=== PATIENT | female | born 1980 | race Caucasian/White ===

== ENCOUNTER → 2020-03-06 11:03 | Outpatient (CLI) | payer OTHER, SELFPAY ==
--- NOTE | ~2020-03-06 | XR_ITS ---
EXAMINATION: XR sacrum coccyx min 2V INDICATION: Pelvic pain for two months TECHNIQUE: Three views of the sacrum and coccyx are obtained. COMPARISON: None available FINDINGS: Bone alignment is normal. There is no fracture. 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 The soft tissues are unremarkable. There is mild lumbar spondylosis at L5-S1. IMPRESSION: 1. No acute osseous abnormality. Reviewed, dictated and finalized at location A.
== END ==
PROVIDERS: PCP Emergency Medicine; Visit Provider Emergency Medicine
DX: M54.5 Low back pain (principal)
CPT/HCPCS: 72220

== ENCOUNTER 2021-03-24 16:40 | Emergency (ER) | payer OTHER, SELFPAY ==
--- NOTE | ~2021-03-24 | CT_ITS ---
EXAMINATION: CT soft tissue neck w con DATE: 03/24/2021 17:57 INDICATION: Antalgic. Left neck swelling. Trismus. TECHNIQUE: Computed tomography (CT) of the neck was performed with 75 mL Omnipaque-350 intravenous co ntrast. The dose-length product was 351.55 mGy-cm. Automated exposure control and iterative reconstru ction technique were employed. COMPARISON: No prior studies for comparison. FINDINGS: No significant periodontal ostial lysis. No evidence for dental or facial abscess. Scattere d nonenlarged submandibular and submental lymph nodes, likely reactive. The orbits, paranasal sinuses and mastoids are unremarkable. No significant abnormality of the mucosal or parapharyngeal space. 11 mm hypovascular left thyroid nodule, likely benign. Mild cervical spondylosis. IMPRESSION: 1. No evidence for significant dental/periodontal disease. No evidence for abscess. Reviewed, dictated and finalized at location A. IMPRESSION: 1. No evidence for significant dental/periodontal disease. No evidence for absc ess.
[2021-03-24 16:46] VITALS: BP 115/73; PULSE 89; RESP 16; TEMP 37.3; O2SAT 99
[2021-03-24 17:22] LABS: Basophils Absolute Auto 0.1 K/mm3 (0.0-0.1); Basophils Percent Auto 0.7 % (0.2-1.2); Eosinophils Absolute Auto 0.1 K/mm3 (0-0.3); Eosinophils Percent Auto 1.7 % (0-4.4); Hematocrit 35.3 % (37.0-47.0); Hemoglobin 12.1 g/dL (12.0-15.0); Immature Granulocyte Absolute 0.02 K/mm3 (0.00-0.031); Immature Granulocyte Percent A 0.3 % (0-0.5); Lymphocytes Absolute Auto 1.89 K/mm3 (0.9-3.2); Lymphocytes Percent Auto 26.9 % (18.3-44.2); Mean Corpuscular HGB Conc 34.3 g/dl (32-36); Mean Corpuscular Hemoglobin 35.4 pg (26-34); Mean Corpuscular Volume 103.2 fl (80-100); Mean Platelet Volume 8.7 fl (7.4-10.4); Monocytes Absolute Auto 0.8 K/mm3 (0.1-0.6); Monocytes Percent Auto 10.8 % (2.6-8.5); Neutrophils Absolute Auto 4.2 K/mm3 (1.3-6.7); Neutrophils Percent Auto 59.6 % (45.5-73.1); Platelet Count Result 334 k/mm3 (150-375); Red Blood Count 3.42 M/mm3 (4.2-5.4); Red Cell Distribution Width 12.7 % (11.5-14.5)
[2021-03-24 17:36] LABS: Anion Gap 9 mmol/L (8-16); Blood Urea Nitrogen 14 mg/dL (7-17); CRP 8.6 mg/dL (<1.0); Calcium 9.7 mg/dL (8.4-10.2); Carbon Dioxide 25 mmol/L (22-30); Chloride 103 mmol/L (98-107); Estimated CRCL calculation 77 ml/min; Estimated Glomerular Filt Rate > 60; Glucose 108 mg/dL (65-110); Potassium 4.3 mmol/L (3.4-5.0); Sodium 137 mmol/L (137-145)
--- NOTE | 2021-03-24 17:42 | ED.DENTAL ---
HPI - Dental/Oral General Chief complaint: Dental/Oral Stated complaint: tooth pain Time Seen by Provider: 03/24/21 16:52 Source: patient Mode of arrival: ambulatory Limitations: no limitations History of Present Illness HPI Narrative: This is a 40 year old female that presents to the ER for toothache present over the last couple of days. Reports swelling and pain to the area. She has not been able to open her mouth. Reports she has not been able to eat. Is still able to tolerate liquids. Denies fever or dyspnea. MD Complaint: tooth pain Location: Tooth # (19) Related Data Allergies Allergy/AdvReac Type Severity Reaction Status Date / Time No Known Allergies Allergy Verified 03/24/21 16:54 Review of Systems Review of Systems: CONSTITUTIONAL: Denies fever ENT: Reports dentalgia RESPIRATORY: Denies dyspnea. All systems reviewed & are unremarkable except as noted in HPI and below PMFSH Past Medical History Medical History (Updated 03/24/21 @ 21:14 by Dipti Wells PA-C) No active medical problems Social History Social History (Updated 03/24/21 @ 17:46 by Dipti Wells PA-C) Substance use: never Exam Narrative: GENERAL: Well-appearing, well-nourished, and in no acute distress. HEAD: Normocephalic, atraumatic. EYES: EOMI. ENT: Mucous membranes moist. Oropharynx without tonsillar hypertrophy exudate or other lesions. Patient unable to fully open mouth. Floor of mouth is soft. Patient tolerating secretions. Tooth #19 tender to palpation NECK: Supple. Left sided anterior cervical tender adenopathy CHEST: Clear to auscultation. No respiratory distress. No wheezes rales or rhonchi HEART: Regular rate and rhythm. No murmur heard. Normal peripheral pulses. EXTREMITIES: Normal range of motion. No edema. SKIN: Warm, dry, no rash. NEURO: No focal deficits. Alert and oriented x3. PSYCH: Normal mood and affect Course Vital Signs Vital signs: Vital Signs Temperature 99.1 F 03/24/21 16:46 Pulse Rate 89 03/24/21 16:46 Respiratory Rate 16 03/24/21 16:46 Blood Pressure 115/73 03/24/21 16:46 Pulse Oximetry 99 03/24/21 16:46 Temperature 99.1 F 03/24/21 16:46 Pulse Rate 82 03/24/21 19:12 Respiratory Rate 18 03/24/21 19:12 Blood Pressure 115/86 03/24/21 19:12 Pulse Oximetry 100 03/24/21 19:12 MDM - Dental/Oral MDM Narrative Medical decision making narrative: Patient presents to the emergency department for dentalgia. Noting swelling to the left lower jaw. She is afebrile and nontoxic-appearing. Patient noting some difficulty swallowing. She is able to tolerate oral intake. Airways patent. Noting some difficulty opening her mouth additionally, this improved with Toradol. CBC is without leukocytosis. Inflammatory markers are elevated. CT scan of the soft tissue neck is without evidence of abscess. Patient given dose of Unasyn in the ED for presumptive dental infection. Will be started on oral antibiotics. She is to follow up with her primary care doctor. She was given warnings to return to the ER Lab Data Attestation: I reviewed the patient's lab results. Result diagrams: 03/24/21 17:16 03/24/21 17:16 Labs: Lab Results 03/24/21 03/24/21 Range/Units 17:16 17:16 WBC 7.0 (4.5-10.0) K/mm3 RBC 3.42 L (4.2-5.4) M/mm3 Hgb 12.1 (12.0-15.0) g/dL Hct 35.3 L (37.0-47.0) % MCV 103.2 H (80-100) fl MCH 35.4 H (26-34) pg MCHC 34.3 (32-36) g/dl RDW 12.7 (11.5-14.5) % Plt Count 334 (150-375) k/mm3 MPV 8.7 (7.4-10.4) fl Immature Gran % (Auto) 0.3 (0-0.5) % Neut % (Auto) 59.6 (45.5-73.1) % Lymph % (Auto) 26.9 (18.3-44.2) % [facility] % (Auto) 10.8 H (2.6-8.5) % Eos % (Auto) 1.7 (0-4.4) % Baso % (Auto) 0.7 (0.2-1.2) % Lymph # (Auto) 1.89 (0.9-3.2) K/mm3 [facility] # (Auto) 0.8 H (0.1-0.6) K/mm3 Eos # (Auto) 0.1 (0-0.3) K/mm3 Baso # (Auto) 0.1 (0.0-0.1) K/mm3 Abs Immat Gran (auto) 0.02
[2021-03-24 17:47] LABS: Erythrocyte Sedimentation Rate 71 mm/hr (0-20)
[2021-03-24 19:12] VITALS: BP 115/86; PULSE 82; RESP 18; O2SAT 100
[2021-03-24] MEDS: KETOROLAC 30 MG/ML VIAL (*BKC) IV PUSH (20:14)
[2021-03-24] MEDS: AMPICILLIN SULB 3 GM/NS 100 ML 3 GM/100 ML VIAL IVPB (20:16)
[2021-03-24 21:57] VITALS: BP 129/80; PULSE 92; RESP 18; O2SAT 97
== END 2021-03-24 21:59 | disposition home or self-care (01) ==
PROVIDERS: Physician Assistant; Emergency Provider Emergency Medicine; PCP Emergency Medicine
DX: K04.7 Periapical abscess without sinus (principal)
CPT/HCPCS: 36415; 70491; 80048; 81025; 85025; 85652; 86140; 96365; 96375; 99284; J0295; J1885; Q9967

== ENCOUNTER 2021-07-03 03:38 | Emergency (ER) | payer OTHER, SELFPAY ==
[2021-07-03 03:46] VITALS: BP 131/88; PULSE 85; RESP 18; TEMP 36.2; O2SAT 100
--- NOTE | 2021-07-03 03:56 | ED.DENTAL ---
HPI - Dental/Oral General Chief complaint: Dental/Oral Stated complaint: left lower broken tooth with pain Time Seen by Provider: 07/03/21 03:43 Source: patient and RN notes reviewed Mode of arrival: ambulatory Limitations: no limitations History of Present Illness HPI Narrative: 41-year-old female with history of poor dentition presents to the emergency department for evaluation of a fractured tooth and worsening dental pain. Patient states earlier in the day she was eating an apple and cracked her tooth. Patient states she did attempt to bare with the pain and to seek outpatient follow-up but the pain was too intense. Patient states that she has Medicare and is unsure of who takes her insurance. Related Data Allergies Allergy/AdvReac Type Severity Reaction Status Date / Time No Known Allergies Allergy Verified 07/03/21 03:50 Review of Systems Review of Systems: Left lower dental pain/dental fracture All systems reviewed & are unremarkable except as noted in HPI and below PMFSH Past Medical History Medical History (Updated 07/03/21 @ 04:04 by Henrik Vizcaino MD) No active medical problems Social History Social History (Updated 03/24/21 @ 17:46 by Dipti Wells PA-C) Substance use: never Exam Narrative: APPEARANCE: Well appearing, no pain, no distress, well-nourished. HEAD: normocephalic, atraumatic. No facial swelling EYES: PERRLA/EOMI, conjunctivae clear. Mouth: Left lower dental caries affecting multiple teeth. No trismus. No abscess. NECK: Supple. No adenopathy, no masses. Const: General: no acute distress Course Course Emergency Course: Patient was provided antibiotics and medications for pain control emergency room. Patient was discharged with similar medications. All questions concerns were addressed. Patient was also provided information on the dentist to follow-up with. Vital Signs Vital signs: Vital Signs Temperature 97.1 F L 07/03/21 03:46 Pulse Rate 85 07/03/21 03:46 Respiratory Rate 18 07/03/21 03:46 Blood Pressure 131/88 07/03/21 03:46 Pulse Oximetry 100 07/03/21 03:46 Temperature 97.1 F L 07/03/21 03:46 Pulse Rate 85 07/03/21 03:46 Respiratory Rate 18 07/03/21 03:46 Blood Pressure 131/88 07/03/21 03:46 Pulse Oximetry 100 02/08/22 03:46 Discharge Plan Discharge Clinical Impression: Toothache, Dental caries Patient Disposition: Home, Self-Care Condition: Stable Instructions: Antibiotic Form, Acute Dental Trauma (ED) Additional Instructions: Antibiotics as directed until completed. Have close follow-up with rosalino alvarez [phone]. Tylenol and ibuprofen for pain control. Tramadol as needed for additional pain control. If you have any worsening symptoms or if you have any questions or concerns then please call or return to the emergency department. Prescriptions: New amoxicillin-pot clavulanate 875-125 mg tablet 1 tablet PO Q12H Qty: 14 RF: 0 tramadol 50 mg tablet 50 mg PO Q6H Qty: 14 RF: 0 No Action amoxicillin-pot clavulanate 875-125 mg tablet 1 tablet PO Q12H 10 Days Qty: 20 RF: 0 Follow-up/Referrals: Saurabh Nicole MD [Primary Care Provider] - Stand Alone Forms: Work/School Release IP
[2021-07-03] MEDS: AMOXICILLIN/CLAVULANATE K 875-125 MG TAB 1 TABLET PO (04:05)
[2021-07-03] MEDS: HYDROcodone/acetaminophen (*CRX) 5-325 MG TABLET 1 TAB PO (04:05)
== END 2021-07-03 04:25 | disposition home or self-care (01) ==
LOC: ANHED 04:17
PROVIDERS: Emergency Provider Emergency Medicine; PCP Emergency Medicine
DX: K02.9 Dental caries, unspecified (principal)
CPT/HCPCS: 99283; A9270

== ENCOUNTER 2022-08-20 15:55 | Emergency (ER) | payer OTHER, SELFPAY ==
--- NOTE | ~2022-08-20 | US_ITS ---
EXAMINATION: US pelvic complete w TV DATE: 08/20/2022 17:34 INDICATION: Menorrhagia TECHNIQUE: Multiple transabdominal and endovaginal sonographic images of the pelvis were obtained. COMPARISON: None. FINDINGS: The uterus measures 8.2 x 3.9 x 4.9 cm. The endometrial complex measures 4 mm. The right ov dano measures 3.2 x 2.9 x 2.3 cm and contains a 2.4 cm simple cyst. The left ovary measures 2.3 x 2.1 x 1.4 cm and contains a 1.6 x 1.1 cm solid appearing lesion with internal calcification. There is nor mal vascular flow in the ovaries. There is no free fluid in the pelvis. IMPRESSION: 1. No sonographic correlate for the patient's symptoms. 2. Solid-appearing lesion of the left adnexa with internal calcification. Follow-up ultrasound in six months is recommended. Reviewed, dictated and finalized at location F. IMPRESSION: 1. No sonographic correlate for the patient's symptoms. 2. Solid-appearing lesion of the left adnexa with internal calcification. Follo w-up ultrasound in six months is recommended.
[2022-08-20 16:03] VITALS: BP 118/69; PULSE 84; RESP 15; TEMP 36.8; O2SAT 99
[2022-08-20 16:13] LABS: Basophils Absolute Auto 0.1 K/mm3 (0.0-0.1); Eosinophils Absolute Auto 0.1 K/mm3 (0-0.3); Hemoglobin 11.9 g/dL (12.0-15.0); Immature Granulocyte Absolute 0.01 K/mm3 (0.00-0.031); Immature Granulocyte Percent A 0.2 % (0-0.5); Lymphocytes Absolute Auto 1.67 K/mm3 (0.9-3.2); Lymphocytes Percent Auto 27.2 % (18.3-44.2); Mean Corpuscular HGB Conc 33.1 g/dl (32-36); Mean Corpuscular Hemoglobin 35.5 pg (26-34); Mean Corpuscular Volume 107.5 fl (80-100); Mean Platelet Volume 8.3 fl (7.4-10.4); Monocytes Absolute Auto 0.6 K/mm3 (0.1-0.6); Monocytes Percent Auto 9.4 % (2.6-8.5); Neutrophils Absolute Auto 3.7 K/mm3 (1.3-6.7); Neutrophils Percent Auto 60.2 % (45.5-73.1); Platelet Count Result 514 k/mm3 (150-375); Red Blood Count 3.35 M/mm3 (4.2-5.4); Red Cell Distribution Width 14.1 % (11.5-14.5); White Blood Count 6.2 K/mm3 (4.5-10.0)
--- NOTE | 2022-08-20 17:01 | ED.FEMALEGU ---
HPI - Female Genitourinary General Chief complaint: Vaginal Bleeding Stated complaint: VAG BLEED Time Seen by Provider: 08/20/22 16:37 History of Present Illness HPI Narrative: 42-year-old female presents to the emergency room today for ongoing problems with heavy vaginal bleeding. She says that her period has been going on for 10 full days and has been heavy the entire time. She went to see her primary care today and they got a low blood pressure of 90 systolic so they wanted her to come to the ER for evaluation. She reports having a lot of lower abdominal cramping. She is soaking through several super tampons daily. No dizziness or lightheadedness. Related Data Allergies Allergy/AdvReac Type Severity Reaction Status Date / Time No Known Allergies Allergy Verified 07/03/21 03:50 Review of Systems Review of Systems: CONSTITUTIONAL: Denies fever, chills, or sweats. EYES: Denies visual changes, redness, or discharge. ENT: Denies rhinorrhea, congestion, sore throat, or otalgia. CARDIOVASCULAR: Denies chest pain, palpitations, or edema. RESPIRATORY: Denies cough or dyspnea. GASTROINTESTINAL: Denies abdominal pain, nausea, vomiting, or diarrhea. GENITOURINARY: As per HPI SKIN: Denies rash or itching. MUSCULOSKELETAL: Denies back pain, joint pain, or myalgia. NEUROLOGIC: Denies headache, numbness, dizziness, or weakness. PSYCHIATRIC: Denies anxiety or depression. PMFSH Past Medical History Medical History No active medical problems Social History Social History Substance use: never Exam Narrative: GENERAL: Well-appearing, well-nourished, and in no acute distress. HEAD: Normocephalic, atraumatic. NECK: Supple. No adenopathy or masses. No carotid bruits or JVD CHEST: Clear to auscultation. No respiratory distress. No wheezes rales or rhonchi HEART: Regular rate and rhythm. No murmur heard. Normal peripheral pulses. ABDOMEN: Soft, nontender, nondistended, normal active bowel sounds. EXTREMITIES: Normal range of motion. No edema. SKIN: Warm, dry, no rash. NEURO: No focal deficits. Alert and oriented x3. PSYCH: Normal mood and affect. Course Vital Signs Vital signs: Vital Signs Temperature 36.8 C 08/20/22 16:03 Pulse Rate 84 08/20/22 16:03 Respiratory Rate 15 08/20/22 16:03 Blood Pressure 118/69 08/20/22 16:03 Pulse Oximetry 99 08/20/22 16:03 Oxygen Delivery Room Air 08/20/22 16:03 Temperature 36.8 C 08/20/22 16:03 Pulse Rate 101 H 08/20/22 17:43 Respiratory Rate 15 08/20/22 16:03 Blood Pressure 159/92 H 08/20/22 17:43 Pulse Oximetry 99 08/20/22 16:03 Oxygen Delivery Room Air 08/20/22 16:03 MDM - Female Genitourinary Lab Data Attestation: I reviewed the patient's lab results. 08/20/22 16:03 Labs: Lab Results 08/20/22 08/20/22 08/20/22 Range/Units 16:03 16:03 17:06 WBC 6.2 (4.5-10.0) K/mm3 RBC 3.35 L (4.2-5.4) M/mm3 Hgb 11.9 L (12.0-15.0) g/dL Hct 36.0 L (37.0-47.0) % MCV 107.5 H (80-100) fl MCH 35.5 H (26-34) pg MCHC 33.1 (32-36) g/dl RDW 14.1 (11.5-14.5) % Plt Count 514 H D (150-375) k/mm3 MPV 8.3 (7.4-10.4) fl Immature Gran % (Auto) 0.2 (0-0.5) % Neut % (Auto) 60.2 (45.5-73.1) % Lymph % (Auto) 27.2 (18.3-44.2) % [place] % (Auto) 9.4 H (2.6-8.5) % Eos % (Auto) 2.0 (0-4.4) % Baso % (Auto) 1.0 (0.2-1.2) % Lymph # (Auto) 1.67 (0.9-3.2) K/mm3 [place] # (Auto) 0.6 (0.1-0.6) K/mm3 Eos # (Auto) 0.1 (0-0.3) K/mm3 Baso # (Auto) 0.1 (0.0-0.1) K/mm3 Abs Immat Gran (auto) 0.01 (0.00-0.031) K/mm3 Absolute Neuts (auto) 3.7 (1.3-6.7) K/mm3 Absolute Nucleated RBC 0.0 (0.0-0.012) K/mm3 Nucleated RBC % 0.0 (0.0-0.2) % Sodium 135 L (137-145) mmol/L Potassium 4.2 (3.4-5.0) mmol/L Chloride 103 (98-107) mmol/L
[2022-08-20 17:17] LABS: Alanine Aminotransferase 15 U/L (6-35); Albumin Level 4.1 g/dL (3.5-5.1); Alkaline Phosphatase 53 U/L (38-126); Anion Gap 3 mmol/L (8-16); Aspartate Amino Transferase 26 U/L (14-36); Bilirubin,Total 0.5 mg/dL (0.2-1.3); Blood Urea Nitrogen 18 mg/dL (7-17); Calcium 8.9 mg/dL (8.4-10.2); Carbon Dioxide 29 mmol/L (22-30); Chloride 103 mmol/L (98-107); Estimated CRCL calculation 80 ml/min; Estimated Glomerular Filt Rate > 60; Glucose 99 mg/dL (65-110); Potassium 4.2 mmol/L (3.4-5.0); Sodium 135 mmol/L (137-145)
[2022-08-20 17:18] LABS: Appearance Urine Cloudy (Clear); Bacteria Urine 4+ /hpf; Bilirubin Urine Negative (Negative); Blood Urine 1+ (Negative); Color Urine Yellow (Yellow); Glucose Urine UA Negative (Negative); Ketones Urine Trace mg/dL (Negative); Leukocyte Esterase Ur Negative LEU/UL (Negative); Nitrate Urine Positive (Negative); Non Pathogenic Casts 0-2; Protein Urine Negative (Negative); Squamous Epithelial Cell Urine None seen /hpf (Few); Urobilinogen Urine 0.2 mg/dL (<2.0)
[2022-08-20 17:31] LABS: Add Urine Microscopic? YES
[2022-08-20 17:32] LABS: Pregnancy On Board Control Positive; Urine Pregnancy Test Negative
[2022-08-20 17:37] VITALS: BP 129/83; PULSE 94
[2022-08-20 17:40] VITALS: BP 121/87; PULSE 95
[2022-08-20 17:43] VITALS: BP 159/92; PULSE 101
[2022-08-20] MEDS: KETOROLAC 30 MG/ML VIAL (*BKC) IV PUSH (17:59)
[2022-08-20] MEDS: SODIUM CHLORIDE 0.9% IV 1,000 ML 999 ML IV CONT (18:00)
[2022-08-20 19:10] VITALS: PULSE 78; RESP 18; O2SAT 100
== END 2022-08-20 19:20 | disposition home or self-care (01) ==
PROVIDERS: Emergency Medicine; Emergency Provider Nurse Practitioner Family; PCP Emergency Medicine
DX: N93.8 Other specified abnormal uterine and vaginal bleeding (principal); D64.9 Anemia, unspecified; N94.89 Other specified conditions associated with female genital organs and menstrual cycle
CPT/HCPCS: 36415; 76830; 76856; 80053; 81001; 81025; 85025; 87077; 87086; 87186; 96365; 96375; 99284; J0696; J1885; J7030

== ENCOUNTER 2024-04-14 15:36 | Emergency (ER) | payer OTHER, SELFPAY ==
--- NOTE | ~2024-04-14 | XR_ITS ---
CHEST RADIOGRAPH, PA AND LATERAL CLINICAL HISTORY: shortness of breath, CP, DIZZINESS FOR COUPLE WKS . COMPARISON: None available TECHNIQUE: PA and lateral views of the chest. FINDINGS The cardiomediastinal silhouette is unremarkable. The lungs are clear. Visualized osseous structures and soft tissues are unremarkable. IMPRESSION: No focal infiltrate or effusion. Reviewed, dictated and finalized at location A. DENTIAL SUPPORT WORKER
[2024-04-14 15:41] VITALS: BP 129/91; PULSE 95; RESP 20; TEMP 36.6; O2SAT 100
--- NOTE | 2024-04-14 17:17 | ECG_ITS ---
Test Date: 2024-04-14 17:20:59 Measurements Intervals [place] Rate: 102 P: 52 MI: 131 QRS: 49 QRSD: 81 T: 43 QT: 365 QTc: 477 Interpretive Statements SINUS TACHYCARDIA BORDERLINE T WAVE ABNORMALITY- ANT/INF LEADS BASELINE ARTIFACT- V4 BORDERLINE ECG No previous ECG available for comparison Electronically Signed On 04-14-2024 18:38:27 [employer] by Abhijit Lance D.O.
[2024-04-14 18:04] LABS: Add Urine Microscopic? NO; Appearance Urine Clear (Clear); Bilirubin Urine Negative (Negative); Blood Urine Negative (Negative); Color Urine Yellow (Yellow); Glucose Urine UA Negative (Negative); Ketones Urine Negative (Negative); Leukocyte Esterase Ur Negative LEU/UL (Negative); Nitrate Urine Negative (Negative); Protein Urine Negative (Negative); Specific Grav Ur 1.028 (1.001-1.035); Urobilinogen Urine 0.2 mg/dL (<2.0); pH Urine 5.5 (5.0-9.0)
[2024-04-14 18:04] LABS: Basophils Absolute Auto 0.1 K/mm3 (0.0-0.1); Basophils Percent Auto 1.1 % (0.2-1.2); Eosinophils Percent Auto 0.2 % (0-4.4); Hematocrit 25.5 % (37.0-47.0); Immature Granulocyte Absolute 0.01 K/mm3 (0.00-0.031); Immature Granulocyte Percent A 0.2 % (0-0.5); Lymphocytes Absolute Auto 1.34 K/mm3 (0.9-3.2); Lymphocytes Percent Auto 29.6 % (18.3-44.2); Mean Corpuscular HGB Conc 31.4 g/dl (32-36); Mean Corpuscular Hemoglobin 32.8 pg (26-34); Mean Corpuscular Volume 104.5 fl (80-100); Mean Platelet Volume 8.4 fl (7.4-10.4); Monocytes Absolute Auto 0.4 K/mm3 (0.1-0.6); Monocytes Percent Auto 8.2 % (2.6-8.5); Neutrophils Absolute Auto 2.8 K/mm3 (1.3-6.7); Neutrophils Percent Auto 60.7 % (45.5-73.1); Platelet Count Result 672 k/mm3 (150-375); Red Blood Count 2.44 M/mm3 (4.2-5.4); Red Cell Distribution Width 14.6 % (11.5-14.5); White Blood Count 4.5 K/mm3 (4.5-10.0)
[2024-04-14 18:14] LABS: Alanine Aminotransferase 15 U/L (6-35); Albumin Level 4.3 g/dL (3.5-5.1); Alkaline Phosphatase 49 U/L (38-126); Anion Gap 9 mmol/L (4-12); Aspartate Amino Transferase 24 U/L (14-36); Bilirubin,Total 0.4 mg/dL (0.2-1.3); Blood Urea Nitrogen 16 mg/dL (7-17); Calcium 9.4 mg/dL (8.4-10.2); Carbon Dioxide 19 mmol/L (22-30); Chloride 107 mmol/L (98-107); Estimated CRCL calculation 69 ml/min; Estimated Glomerular Filt Rate > 60; Glucose 145 mg/dL (65-110); Potassium 3.8 mmol/L (3.4-5.0); Sodium 135 mmol/L (137-145)
--- NOTE | 2024-04-14 18:27 | ED_ITS ---
HPI - SOB/Dyspnea General Chief Complaint: Shortness of Breath/Dyspnea <Megan Camp APRN - Last Filed: 04/14/24 18:31> Stated Complaint: headache x 2 weeks <Megan Camp APRN - Last Filed: 04/14/24 18:31> Time Seen by Provider: 04/14/24 18:20 <Megan Camp APRN - Last Filed: 04/14/24 18:31> Focused HPI: Patient is a 43-year-old female who presents to the ER with shortness of breath, especially with exertion, and a headache that radiates from her neck up towards the base of her head. She reports she has a history of high blood pressure and tachycardia. Patient endorses bilateral lower extremity swelling recently also. She reports she was a previous smoker but quit about 10 years ago. Patient denies chest pain, fevers, or wheezing. GENERAL: Pallor, well-appearing, well-nourished, and in no acute distress. HEAD: Normocephalic, atraumatic. CHEST: Clear to auscultation. ?No respiratory distress. HEART: Tachycardia, regular rhythm.? NEURO: ?Alert and oriented x3. Patient screened in triage and initial orders placed.? ?Additional care and disposition to be based upon?diagnostic testing and treatment. <Megan Camp APRN - Last Filed: 04/14/24 18:31> Related Data Allergies/Adverse Reactions: Allergies Allergy/AdvReac Type Severity Reaction Status Date / Time No Known Allergies Allergy Verified 07/03/21 03:50 <Megan Camp APRN - Last Filed: 04/14/24 18:31> Review of Systems Review of Systems: All systems are reviewed and are negative unless stated otherwise in the HPI. <Brendon Vo MD - Last Filed: 04/14/24 20:56> PMFSH Past Medical History Medical History: Medical History No active medical problems <Megan Camp APRN - Last Filed: 04/14/24 18:31> Social History Social History: Social History Substance use: never <Megan Camp APRN - Last Filed: 04/14/24 18:31> Exam Narrative: General: Alert, awake, afebrile, in no acute distress. HEENT: PERRL, no rhinorrhea, no post nasal drip, oropharynx clear. Neck: Trachea midline, no JVD, no lymphadenopathy. Cardiovascular: Regular rate and rhythm, no murmurs, rubs or gallops, no peripheral edema. Respiratory: Clear to auscultation bilaterally, no tachypnea, no wheezing, no rhonchi, no rubs, no respiratory distress. Abdomen: Soft, nontender, nondistended, no rebound, no guarding, no peritoneal signs. Musculoskeletal: No joint swelling or deformity, normal muscle tone. Skin: No rashes or petechia, no signs of infection. Psychiatric: Alert and oriented, normal behavior and judgment for situation. Neurological: Alert and oriented to person, place, and time. Follows all commands. No focal deficits, speech is clear and fluent. <Brendon Vo MD - Last Filed: 04/14/24 20:56> Course Vital Signs Vital signs: Vital Signs Temperature 97.9 F 04/14/24 15:41 Pulse Rate 95 04/14/24 15:41 Respiratory Rate 20 04/14/24 15:41 Blood Pressure 129/91 H 04/14/24 15:41 Pulse Oximetry 100 04/14/24 15:41 Oxygen Delivery Room Air 04/14/24 15:41 Temperature 97.9 F 04/14/24 15:41 Pulse Rate 95 04/14/24 15:41 Respiratory Rate 20 04/14/24 15:41 Blood Pressure 129/91 H 04/14/24 15:41 Pulse Oximetry 100 04/14/24 15:41 Oxygen Delivery Room Air 04/14/24 15:41 <Megan Camp FORMING MACHINE OPERATOR - Last Filed: 04/14/24 18:31> Vital Signs Temperature 97.9 F 04/14/24 15:41 Pulse Rate 95 04/14/24 15:41 Respiratory Rate 20 04/14/24 15:41 Blood Pressure 129/91 H 04/14/24 15:41 Pulse Oximetry 100 04/14/24 15:41 Oxygen Delivery Room Air 04/14/24 15:41 Temperature 97.9 F 04/14/24 15:41 Pulse Rate 95 04/14/24 15:41 Respiratory Rate 20 04/14/24 15:41 Blood Pressure 129/91 H 04/14/24 15:41 Pulse Oximetry 100 04/14/24 15:41 Oxygen Delivery Room Air 04/14/24 15:41 <Brendon Vo MD - Last Filed: 04/14/24 20:56> MDM - SOB/Dyspnea MDM Narrative Medical decision making narrative: The patient was evaluated by myself in the emergency department. History is obtained from patient who is an independent historian and physical exam was performed. External medical records were reviewed at this time. IV was established and pertinent tests were ordered. EKG was obtained which revealed sinus tachycardia rate of 102 beats per minute. No ST changes, T wave inversions or evidence of acute ischemia. EKG was independently interpreted by me and is currently pending official cardiology read. Laboratory results obtained include a troponin, D-dimer which were all noted to be negative. Urinalysis unremarkable. Patient was informed that her hemoglobin was noted to be 8 and was informed that her anemia could be contributing to her symptoms. Patient denies any history of anemia. Denies any current blood thinner use and denies any dark stools. Patient was informed that she will need to follow-up with her primary care physician for further evaluation including iron studies and patient is agreeable with this plan. She was also informed that she will be provided with supervisor offset plate preparation follow-up with. Imaging studies obtained included CXR which was independently interpreted by me revealing no acute cardiopulmonary process, which is pending final radiology interpretation. Differential diagnosis considerations include acute viral syndrome, infectious process such as pneumonia, acute coronary syndrome, congestive heart failure. Comorbidities impacting this visit include history of hypertension and tachy cardia. I have evaluated and discussed social determinants of health with the patient that could potentially impact subsequent diagnosis and treatment plans. On repeat assessment of the patient, reevaluation revealed that the patient is doing well and is in no acute distress. Patient symptoms have remained stable arrived to our emergency department. Repeat vital signs were all reviewed and no steven to be stable. Differential diagnosis and treatment plan were discussed with the patient at bedside. Patient agrees with discussion and after shared medical decision making agrees with discharge. All questions were answered to the patient's satisfaction. Patient will follow up with her PCP in 3-5 days. Patient was provided with strict return precautions and instructed to return to the emergency department if any new or worsening symptoms develop. The patient was discharged in stable condition. <Brendon Vo MD - Last Filed: 04/14/24 20:56> Lab Data Result diagrams: 04/14/24 17:28 04/14/24 17:28 <Megan Camp APRN - Last Filed: 04/14/24 18:31> Labs: Lab Results 04/14/24 04/14/24 04/14/24 Range/Units 17:27 17:28 17:48 WBC 4.5 (4.5-10.0) K/mm3 RBC 2.44 L (4.2-5.4) M/mm3 Hgb 8.0 L D (12.0-15.0) g/dL Hct 25.5 L (37.0-47.0) % MCV 104.5 H (80-100) fl MCH 32.8 (26-34) pg MCHC 31.4 L (32-36) g/dl RDW 14.6 H (11.5-14.5) % Plt Count 672 H (150-375) k/mm3 MPV 8.4 (7.4-10.4) fl Immature Gran % (Auto) 0.2 (0-0.5) % Neut % (Auto) 60.7 (45.5-73.1) % Lymph % (Auto) 29.6 (18.3-44.2) % [place] % (Auto) 8.2 (2.6-8.5) % Eos % (Auto) 0.2 (0-4.4) % Baso % (Auto) 1.1 (0.2-1.2) % Lymph # (Auto) 1.34 (0.9-3.2) K/mm3 [place] # (Auto) 0.4 (0.1-0.6) K/mm3 Eos # (Auto) 0.0 (0-0.3) K/mm3 Baso # (Auto) 0.1 (0.0-0.1) K/mm3 Abs Immat Gran (auto) 0.01 (0.00-0.031) K/mm3 Absolute Neuts (auto) 2.8 (1.3-6.7) K/mm3 Absolute Nucleated RBC 0.000 (0.0-0.012) K/mm3 Nucleated RBC % 0.0 (0.0-0.2) % PT 13.3 (11.1-14.7) Seconds INR 1.0 APTT 25.8 (22.3-36.8) Seconds D-Dimer < 0.27 (<0.48) ug/mL Sodium 135 L (137-145) mmol/L Potassium 3.8 (3.4-5.0) mmol/L Chloride 107 (98-107) mmol/L Carbon Dioxide 19 L (22-30) mmol/L Anion Gap 9 (4-12) mmol/L BUN 16 (7-17) mg/dL Creatinine 0.70 (0.7-1.0) mg/dL Estim Creat Clear Calc 69 ml/min Estimated GFR > 60 (59 - ) Glucose 145 H (65-110) mg/dL Calcium 9.4 (8.4-10.2) mg/dL Magnesium 1.9 (1.6-2.3) mg/dL Total Bilirubin 0.4 (0.2-1.3) mg/dL AST 24 (14-36) U/L ALT 15 (6-35) U/L Alkaline Phosphatase 49 (38-126) U/L Troponin I < 0.012 (0.000-0.034) ng/mL NT-Pro-B Natriuret Pep 130 H (19.9-100) pg/mL Total Protein 8.0 (6.3-8.2) g/dL Albumin 4.3 (3.5-5.1) g/dL Urine Color Yellow (Yellow) Urine Appearance Clear (Clear) Urine pH 5.5 (5.0-9.0) Ur Specific [place] 1.028 (1.001-1.035) Urine Protein Negative (Negative) mg/dL Urine Glucose (UA) Negative (Negative) mg/dL Urine Ketones Negative (Negative) mg/dL Ur Blood (Man) Negative (Negative) Urine Nitrate Negative (Negative) Urine Bilirubin Negative (Negative) Urine Urobilinogen 0.2 (<2.0) mg/dL Leukocyte Esterase Rfl Negative (Negative) SHRAVAN/UL <Megan LChris [place], FORMING MACHINE OPERATOR - Last Filed: 04/14/24 18:31> Lab Results 04/14/24 04/14/24 04/14/24 Range/Units 17:27 17:28 17:48 WBC 4.5 (4.5-10.0) K/mm3 RBC 2.44 L (4.2-5.4) M/mm3 Hgb 8.0 L D (12.0-15.0) g/dL Hct 25.5 L (37.0-47.0) % MCV 104.5 H (80-100) fl MCH 32.8 (26-34) pg MCHC 31.4 L (32-36) g/dl RDW 14.6 H (11.5-14.5) % Plt Count 672 H (150-375) k/mm3 MPV 8.4 (7.4-10.4) fl Immature Gran % (Auto) 0.2 (0-0.5) % Neut % (Auto) 60.7 (45.5-73.1) % Lymph % (Auto) 29.6 (18.3-44.2) % [place] % (Auto) 8.2 (2.6-8.5) % Eos % (Auto) 0.2 (0-4.4) % Baso % (Auto) 1.1 (0.2-1.2) % Lymph # (Auto) 1.34 (0.9-3.2) K/mm3 [place] # (Auto) 0.4 (0.1-0.6) K/mm3 Eos # (Auto) 0.0 (0-0.3) K/mm3 Baso # (Auto) 0.1 (0.0-0.1) K/mm3 Abs Immat Gran (auto) 0.01 (0.00-0.031) K/mm3 Absolute Neuts (auto) 2.8 (1.3-6.7) K/mm3 Absolute Nucleated RBC 0.000 (0.0-0.012) K/mm3 Nucleated RBC % 0.0 (0.0-0.2) % PT 13.3 (11.1-14.7) Seconds INR 1.0 APTT 25.8 (22.3-36.8) Seconds D-Dimer < 0.27 (<0.48) ug/mL Sodium 135 L (137-145) mmol/L Potassium 3.8 (3.4-5.0) mmol/L Chloride 107 (98-107) mmol/L Carbon Dioxide 19 L (22-30) mmol/L Anion Gap 9 (4-12) mmol/L BUN 16 (7-17) mg/dL Creatinine 0.70 (0.7-1.0) mg/dL Estim Creat Clear Calc 69 ml/min Estimated GFR > 60 (59 - ) Glucose 145 H (65-110) mg/dL Calcium 9.4 (8.4-10.2) mg/dL Magnesium 1.9 (1.6-2.3) mg/dL Total Bilirubin 0.4 (0.2-1.3) mg/dL AST 24 (14-36) U/L ALT 15 (6-35) U/L Alkaline Phosphatase 49 (38-126) U/L Troponin I < 0.012 (0.000-0.034) ng/mL NT-Pro-B Natriuret Pep 130 H (19.9-100) pg/mL Total Protein 8.0 (6.3-8.2) g/dL Albumin 4.3 (3.5-5.1) g/dL Urine Color Yellow (Yellow) Urine Appearance Clear (Clear) Urine pH 5.5 (5.0-9.0) Ur Specific [place] 1.028 (1.001-1.035) Urine Protein Negative (Negative) mg/dL Urine Glucose (UA) Negative (Negative) mg/dL Urine Ketones Negative (Negative) mg/dL Ur Blood (Man) Negative (Negative) Urine Nitrate Negative (Negative) Urine Bilirubin Negative (Negative) Urine Urobilinogen 0.2 (<2.0) mg/dL Leukocyte Esterase Rfl Negative (Negative) SHRAVAN/UL <Brendon Vo MD - Last Filed: 04/14/24 20:56> Discharge Plan Discharge Clinical Impression: Anemia, Exertional dyspnea <Megan Camp APRN - Last Filed: 04/14/24 18:31> Patient Disposition: Home, Self-Care <Megan Camp APRN - Last Filed: 04/14/24 18:31> Condition: Stable <Megan Camp APRN - Last Filed: 04/14/24 18:31> Instructions: Antibiotic Form, Anemia (ED) <Megan Camp APRN - Last Filed: 04/14/24 18:31> Additional Instructions: Please follow-up with your family doctor within the next 3-5 days. Return to the ED if any new or worsening symptoms develop. You also provided with a supervisor offset plate preparation to follow up with and instructed to call to set up a follow-up appointment. <Megan Camp APRN - Last Filed: 04/14/24 18:31> Prescriptions: No Action ferrous sulfate 325 mg (65 mg iron) tablet 325 mg PO DAILY Qty: 30 0RF naproxen 500 mg tablet 500 mg PO BID PRN (Reason: pain) Qty: 30 0RF amoxicillin-pot clavulanate 875-125 mg tablet 1 tablet PO Q12H 10 Days Qty: 20 0RF amoxicillin-pot clavulanate 875-125 mg tablet 1 tablet PO Q12H Qty: 14 0RF tramadol 50 mg tablet 50 mg PO Q6H Qty: 14 0RF <Megan Camp APRN - Last Filed: 04/14/24 18:31> Follow-up/Referrals: Faustino Doyle MD [Physician] - 1 Week Saurabh Nicole MD [Primary Care Provider] - 3 Days <Megan Camp APRN - Last Filed: 04/14/24 18:31> Time of Disposition: 20:55 <Megan Camp APRN - Last Filed: 04/14/24 18:31> 20:55 <Brendon Vo MD - Last Filed: 04/14/24 20:56>
[2024-04-14 20:14] LABS: Magnesium 1.9 mg/dL (1.6-2.3)
[2024-04-14 20:22] LABS: Prothrombin Time 13.3 Seconds (11.1-14.7)
[2024-04-14 20:24] LABS: Partial Thromboplastin Time 25.8 Seconds (22.3-36.8)
[2024-04-14 20:26] LABS: NT Pro B Type Natriuretic Pept 130 pg/mL (19.9-100); Troponin I < 0.012 ng/mL (0.000-0.034)
[2024-04-14 20:28] LABS: D Dimer < 0.27 ug/mL (<0.48)
[2024-04-14 21:42] VITALS: BP 132/87; PULSE 95; RESP 20; O2SAT 100
[2024-04-14 21:43] VITALS: O2SAT 97
== END 2024-04-14 21:44 | disposition home or self-care (01) ==
PROVIDERS: Registered Nurse; Emergency Provider Emergency Medicine; PCP Emergency Medicine
DX: D64.9 Anemia, unspecified (principal); R06.00 Dyspnea, unspecified; R00.0 Tachycardia, unspecified
CPT/HCPCS: 36415; 71046; 80053; 81003; 83735; 83880; 84484; 85025; 85380; 85610; 85730; 93005; 99284

== ENCOUNTER 2024-07-12 10:44 | Emergency (ER) | payer OTHER, SELFPAY ==
[2024-07-12 10:58] VITALS: BP 120/83; PULSE 91; RESP 14; TEMP 36.6; O2SAT 100
--- NOTE | 2024-07-12 11:52 | ED.DENTAL ---
HPI - Dental/Oral General Chief complaint: Dental/Oral Stated complaint: broke tooth yesterday, woke up with L jaw pain Time Seen by Provider: 07/12/24 11:03 History of Present Illness HPI Narrative: Patient is a 44-year-old female who presents ER with left-sided jaw pain. Was eating yesterday and fractured tooth 17. Began developing pain this morning. No fevers or chills. No facial swelling. Related Data Allergies Allergy/AdvReac Type Severity Reaction Status Date / Time No Known Allergies Allergy Verified 07/12/24 11:39 Review of Systems Constitutional: Constitutional: Reports no additional constitutional complaints ENT: Reports system reviewed and no additional complaints, except as documented PMFSH Past Medical History Medical History No active medical problems Social History Social History Substance use: never Exam Narrative: GENERAL: Well-appearing, well-nourished, and in no acute distress. HEAD: Normocephalic, atraumatic. ENT: Mucous membranes moist. Fractured tooth 17. No facial swelling. No drainage from the tooth. CHEST: Clear to auscultation. No respiratory distress. HEART: Regular rate and rhythm. Normal peripheral pulses. EXTREMITIES: Normal range of motion. No edema. NEURO: Alert and oriented x3. PSYCH: Normal mood and affect. Course Course Emergency Course: Discussed treatment for dental fracture. Will give antibiotics as well. Follow up with a dentist. Vital Signs Vital signs: Vital Signs Temperature 97.8 F 07/12/24 10:58 Pulse Rate 91 07/12/24 10:58 Respiratory Rate 14 07/12/24 10:58 Blood Pressure 120/83 07/12/24 10:58 Pulse Oximetry 100 07/12/24 10:58 Oxygen Delivery Room Air 07/12/24 10:58 Temperature 97.8 F 07/12/24 10:58 Pulse Rate 91 07/12/24 10:58 Respiratory Rate 14 07/12/24 10:58 Blood Pressure 120/83 07/12/24 10:58 Pulse Oximetry 100 07/12/24 10:58 Oxygen Delivery Room Air 07/12/24 10:58 Discharge Plan Discharge Clinical Impression: Pain, dental Patient Disposition: Home, Self-Care Condition: Stable Instructions: Toothache (ED) Additional Instructions: Return the ER if he can not breathe, he can not swallow, or you have additional concerns. Patient Language: Lithuanian Prescriptions: New hydrocodone-acetaminophen 5-325 mg tablet 1 tablet PO Q6H PRN (Reason: pain) Qty: 10 0RF amoxicillin-pot clavulanate 875-125 mg tablet 1 tablet PO Q12H Qty: 20 0RF No Action ferrous sulfate 325 mg (65 mg iron) tablet 325 mg PO DAILY Qty: 30 0RF naproxen 500 mg tablet 500 mg PO BID PRN (Reason: pain) Qty: 30 0RF amoxicillin-pot clavulanate 875-125 mg tablet 1 tablet PO Q12H 10 Days Qty: 20 0RF amoxicillin-pot clavulanate 875-125 mg tablet 1 tablet PO Q12H Qty: 14 0RF tramadol 50 mg tablet 50 mg PO Q6H Qty: 14 0RF Follow-up/Referrals: UNKNOWN,DOCTOR [Primary Care Provider] -
--- OUTSIDE RECORDS SUMMARY | 2024-07-12 13:47 | XMS_ITS | Clinical Summary ---
Author Organization [facility] Address [address] [place] [address] Care Team Providers Care Kitchen Help Handyman Name Role Phone Saurabh Nicole MD Primary Care Provider [phone] Allergies No known active allergies Medications chlorhexidine (PERIDEX) 0.12 % solution Apply 15 mL to the mouth or throat 2 (two) times a day 120 mL 09/13/2023 Active ibuprofen (ADVIL,MOTRIN) 800 mg tablet Take 1 tablet (800 mg total) by mouth 3 (three) times a day 21 tablet 09/13/2023 Active Social History Tobacco Use Types Packs/Day Years Used Date Smoking Tobacco: Never Assessed Personal Safety Answer Date Recorded Getting School Help Needed Not on file 08/09 Comments No Sex and Gender Information Value Date Recorded Sex Assigned at Not on file Legal Sex Female 2:44 PM 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 Gender Identity Not on file Sexual Orientation Not on file Last Filed Vital Signs Vital Sign Reading Time Taken Comments Blood Pressure 134/95 09/13/2023 2:39 PM CDT Pulse 107 09/13/2023 2:39 PM CDT Temperature 36.9 C (98.4 F) 09/13/2023 2:39 PM CDT Respiratory Rate 20 09/13/2023 2:39 PM CDT Oxygen Saturation 100% 09/13/2023 2:39 PM CDT Inhaled Oxygen Concentration - - Weight 49.9 kg (110 lb) 09/13/2023 2:39 PM CDT Height 154.9 cm (5' 1 ) 09/13/2023 2:39 PM CDT Body Mass Index 20.78 09/13/2023 2:39 PM CDT Plan of Treatment Not on file Insurance [address] [place] [address] Care Teams Kitchen Help Handyman Relationship Specialty Start Date End Date Saurabh Nicole MD PCP - General Emergency Medicine 06/26/21
--- OUTSIDE RECORDS SUMMARY | 2024-07-12 13:47 | XMS_ITS | Referral Summary ---
Author Organization [facility] Address [address] [place] [address] Care Team Providers Care Outside Parts Salesman Name Role Phone Saurabh Nicole MD Primary Care Provider [phone] Allergies No known active allergies Medications chlorhexidine [...] on file Legal Sex Female 2:44 PM HEAD OF SALES Gender Identity Not on file Sexual Orientation [...] Plan of Treatment Not on file Insurance [place] [address] Care Teams Outside Parts Salesman Relationship Specialty Start Date End Date Saurabh Nicole MD PCP - General Emergency Medicine 06/26/21
--- OUTSIDE RECORDS SUMMARY | 2024-07-12 13:48 | XMS_ITS | Data Portability ---
Author Organization [facility] Address [address] [place] [address] Care Team Providers Care Stretching Machine Tender Frame Name Role Phone KYRA GARCÍA Primary Care Provider [phone] Assessment Encounter Date Assessment Date Assessment LastModified by Organization Details LastModified Time 09/18/2022 09/18/2022 Annual gynecological exam performed. Patient will come back in a year unless there are new symptoms. [email or web address] Not available 09/18/2022 11:25:32 Plan of Treatment Reminders Order Date Submit Date Provider Last Modified By Organization Details Last Modified Time Details Appointments None recorded . Lab dhea-sul fate, serum 2022 023 [facility] (Lab), [address], [place], [address], 3 00:05:27 hormone panel, serum or plasma 2022 023 [facility] (Lab), [address], [place], [address], 3 00:05:28 progeste polo, serum 2022 023 [facility] (Lab), [address] [place], [address], 3 00:05:27 prolacti n, serum 2022 023 [facility] (Lab), [address], [place], [address], 3 00:05:27 shbg (sex hormone- binding globulin ), serum 2022 023 [facility] (Lab), [address], [place], [address], 3 00:05:29 TSH, serum or plasma 2022 023 [facility] (Lab), [address], [place], [address], 3 00:05:28 testoste polo free/brian tosteron e total, ratio, serum 2022 023 [facility] (Lab), [address], [place], [address], 3 00:05:29 CBC w/ auto diff 2022 023 [facility] (Lab), [address], [place], [address], 3 00:05:26 pregnanc y test, urine 2022 023 [facility], [facility] [address], [place], [address], 3 12:02:28 Referral None recorded . Procedures None recorded . Surgeries None recorded . Imaging US, pelvis, complete 2022 023 [facility], [address], [place], [address], 3 17:09:08 MAMMO, screenin g, digital, bilatera l 2022 023 [facility], [address], [place], [address], 3 17:09:08 Medication Orders None recorded . Patient TargetsNo targets recorded. Patient InstructionsNo instructions recorded. Reason for Referral None Reported. Results Created Date Observation Date Name Description Value Unit Range Abnormal Flag Note LastModifiedBy Organization Detail LastModifiedTime 09/19/19 23 09/18/2022 IMAGE GUIDE D PAP AND HPV REGAR DLESS image guided Pap, HPV regardless of Pap result SEE RESULT S BELOW CASE REPOR T: Cytol ogy Gynec ologi kalpana Repor t Case: [id number] Autho villabria rossy Provi nancy: Giuliana Orellana, TROY Colle cted: 09/18 1457 Order ing Locat ion: [place] [facility] Recei dane: 09/19 0930 First Scree n: Molly Henao ica Rescr een: Mary Calderon Speci men: Scree santos Pap - Image d, Cervi x STATE MENT OF ADEQU ACY: Unsat isfac tory for evalu ation . FINAL DIAGN OSIS: Unsat isfac tory for evalu ation . Scant squam ous cellu larit y due to exces s inter ferin g blood . Elect becca crespo bernie d by Mary Calderon on 023 at 3:01 PM ----- ----- ----- ----- ----- ----- ----- ----- ----- ----- ----- ----- ----- ----- ----- ----- ----- ---- HPV RESUL TS: HPV mRNA E6/E7 : No HPV mRNA Detec steven NOTE: This high risk HPV mRNA assay detec ts fourt een high- risk HPV types (16, 18, 31, 33, 35, 39, 45, 51, 52, 56, 58, 59, 66, 68) witho ut diffe renti ation . COMME NT: This speci men was revie wed by a Cytot echno logis t and/o r Patho logis t (as indic ated in this repor t) after evalu ation using the Thinp rep Imagi ng Syste m. CLINI K[facility] INFOR MATIO N: Menst rual Statu s: LMP (if appli cable ): Clini k[facility]pana Histo ry/Pr eviou s Pap: Type of Neopl london (if appli cable ): Signi fican t Clini [facility] Findi ngs: Other Histo ry: Hormo roni (if appli cable ): Not Available [facility] (Lab) [address], [place], [address], 09/23/2022 16:04:32 09/19/19 23 09/18/2022 CBC W/DIF F WBC 3.8 10'3/ uL 3.6-10 .2 Not Available [facility] (Lab) [address], [place], [address], 09/26/2022 00:05:26 09/19/19 23 09/18/2022 CBC W/DIF F RBC 3.36 10'6/ uL (based on docume nted legal sex) 4.10-5 .30 low Not Available [facility] (Lab) [address], [place], [address], 09/26/2022 00:05:26 09/19/19 23 09/18/2022 CBC W/DIF F HGB 11.6 g/dL (based on docume nted legal sex) 11.9-1 5.8 low Not Available [facility] (Lab) [address] [place], [address], 09/26/2022 00:05:26 09/19/19 23 09/18/2022 CBC W/DIF F HCT 36.2 % (based on docume nted legal sex) 37.4-4 8.3 low Not Available [facility] (Lab) [address] [place], [address], 09/26/2022 00:05:26 09/19/19 23 09/18/2022 CBC W/DIF F MCV 107.7 fL 82.0-9 9.0 high Not Available [facility] (Lab) [address] [place], [address], 09/26/2022 00:05:26 09/19/19 23 09/18/2022 CBC W/DIF F MCH 34.5 pg 27.0-3 3.0 high Not Available [facility] (Lab) [address], [place], [address], 09/26/2022 00:05:26 09/19/19 23 09/18/2022 CBC W/DIF F MCHC 32.0 g/dL 32.0-3 6.0 Not Available [facility] (Lab) [address], [place], [address], 09/26/2022 00:05:26 09/19/19 23 09/18/2022 CBC W/DIF F RDW 13.3 % 11.0-1 5.0 Not Available [facility] (Lab) [address], [place], [address], 09/26/2022 00:05:26 09/19/19 23 09/18/2022 CBC W/DIF F plt 582 10'3/ uL 150-45 0 high Not Available [facility] (Lab) [address], [place], [address], 09/26/2022 00:05:26 09/19/19 23 09/18/2022 CBC W/DIF F MPV 9.0 fL 9.8-12 .7 low Not Available [facility] (Lab) [address], [place], [address], 09/26/2022 00:05:26 09/19/19 23 09/18/2022 CBC W/DIF F NRBC's 0.0 % 0 Not Available [facility] (Lab) [address], [place], [address], 09/26/2022 00:05:26 09/19/19 23 09/18/2022 CBC W/DIF F absolute NRBCs 0.0 10'3/ uL 0 Not Available [facility] (Lab) [address], [place], [address], 09/26/2022 00:05:26 09/19/19 23 09/18/2022 CBC W/DIF F neutrophils 52.1 % 37.0-7 2.0 Not Available [facility] (Lab) [address], [place], [address], 09/26/2022 00:05:26 09/19/19 23 09/18/2022 CBC W/DIF F lymphocytes 35.5 % 16.0-4 8.0 Not Available [facility] (Lab) [address], [place], [address], 09/26/2022 00:05:26 09/19/19 23 09/18/2022 CBC W/DIF F monocytes 9.2 % 4.0-14 .0 Not Available [facility] (Lab) [address] [place], [address], 09/26/2022 00:05:26 09/19/19 23 09/18/2022 CBC W/DIF F eosinophils 1.6 % 0.0-9. 0 Not Available [facility] (Lab) [address], [place], [address], 09/26/2022 00:05:26 09/19/19 23 09/18/2022 CBC W/DIF F basophils 1.3 % 0.0-2. 0 Not Available [facility] (Lab) [address] [place], [address], 09/26/2022 00:05:26 09/19/19 23 09/18/2022 CBC W/DIF F immature granulocytes 0.3 % no define d refere nce range Not Available [facility] (Lab) [address] [place], [address], 09/26/2022 00:05:26 09/19/19 23 09/18/2022 CBC W/DIF F absolute neutrophils 2.0 10'3/ uL 1.1-6. 0 Not Available [facility] (Lab) [address], [place], [address], 09/26/2022 00:05:26 09/19/19 23 09/18/2022 CBC W/DIF F absolute lymphocytes 1.4 10'3/ uL 0.7-3. 4 Not Available [facility] (Lab) [address], [place], [address], 09/26/2022 00:05:26 09/19/19 23 09/18/2022 CBC W/DIF F absolute monocytes 0.4 10'3/ uL 0.3-1. 0 Not Available [facility] (Lab) [address], [place], [address], 09/26/2022 00:05:26 09/19/19 23 09/18/2022 CBC W/DIF F absolute eosinophils 0.1 10'3/ uL 0.0-0. 6 Not Available [facility] (Lab) [address], [place], [address], 09/26/2022 00:05:26 09/19/1909/18/2022 CBC W/DIF F absolute basophils 0.1 10'3/ uL 0.0-0. 1 Not Available [facility] (Lab) [address] [place], [address], 09/26/2022 00:05:26 09/19/19 23 09/18/2022 CBC W/DIF F absolute immature granulocytes 0.0 10'3/ uL 0.00-0 .10 2022 1:54 AM: P indic ates parti al resul ts on a panel have been relea sed. Addit ional resul ts will follo w. 2022 1:55 AM: This resul t has been final verif ied. No addit ional or elkins ed resul ts are expec steven. Not Available [facility] (Lab) [address], [place], [address], 09/26/2022 00:05:26 09/19/19 23 09/18/2022 DHEA SULFA TE DHEA-sulfate 99 ug/dL Femal e Range s Age(y ) Range (ug/d L) 10-15 34-28 0 15-20 65-36 8 20-25 148-4 07 25-35 99-34 0 35-45 61-33 7 45-55 35-25 6 55-65 19-20 5 65-75 9-246 > 75 12-15 4 Not Available [facility] (Lab) [address], [place], [address], 09/26/2022 00:05:26 09/19/19 23 09/18/2022 PROGE STERO NE progesterone 0.08 NG/mL This assay was perfo rmed using [employer] ratio n reage nts and test kits. Value s obtai jero with other assay metho ds or kits canno t be used inter [facility] e[facility] . Femal e Proge stero ne Range s: Folli cular phase 0.06- 0.89 ng/mL Ovula tion phase 0.12- 12.00 ng/mL Lutea l phase 1.83- 23.90 ng/mL Postm enopa usal< 0.05- 0.13 ng/mL Healt hy Pregn ant Women 1st Trime ster1 1.0-4 4.30 2nd Trime ster2 5.40- 83.30 3rd Trime ster5 8.70- 214.0 0 Not Available [facility] (Lab) [address], [place], [address], 09/26/2022 00:05:27 09/19/19 23 09/18/2022 PROLA CTIN prolactin, total 20.90 NG/mL 4.79-2 3.30 This assay was perfo rmed using [employer] ratio n reage nts and test kits. Value s obtai jero with other assay metho ds or kits canno t be used inter [facility] eay . Not Available [facility] (Lab) [address], [place], [address], 09/26/2022 00:05:27 09/19/19 23 09/18/2022 FSH, LH, ESTRA DIOL estradiol 6.5 pg/mL This assay was perfo rmed using [employer] ratio n reage nts and test kits. Value s obtai jero with other assay metho ds or kits canno t be used [facility] . Femal e Estra diol Range s: Folli cular phase 12.4- 233 pg/mL Ovula tion phase 41.0- 398 pg/mL Lutea l phase 22.3- 341 pg/mL Postm enopa usal< 5-138 pg/mL Healt hy Pregn ant Women 1st Trime ster1 54-32 43 pg/mL 2nd Trime ster1 561-2 1280 pg/mL 3rd Trime ster8 525-> 50009 pg/mL Not Available [facility] (Lab) [address], [place], [address], 09/26/2022 00:05:28 09/19/19 23 09/18/2022 FSH, LH, ESTRA DIOL FSH 14.0 mIU/m L This assay was perfo rmed using [employer] ratio n reage nts and test kits. Value s obtai jero with other assay metho ds or kits canno t be used [facility] . Femal es Folli cular : 3.5-1 2.5 mIU/m L Ovula tion: 4.7-2 1.5 mIU/m L Lutea l: 1.7-7 .7 mIU/m L Postm enopa use: 25.8- 134.8 mIU/m L Not Available [facility] (Lab) [address], [place], [address], 09/26/2022 00:05:28 09/19/19 23 09/18/2022 FSH, LH, ESTRA DIOL LH 11.2 mIU/m L This assay was perfo rmed using [employer] ratio n reage nts and test kits. Value s obtai jero with other assay metho ds or kits canno t be used [facility] . Femal es Mid-F ollic ular: 2.4-1 2.6 mIU/m L Mid-C ycle: 14.0- 95.6 mIU/m L Mid-L uteal : 1.0-1 1.4 mIU/m L Postm enopa use: 7.7-5 8.5 mIU/m L Not Available [facility] (Lab) [address], [place], [address], 09/26/2022 00:05:28 09/19/19 23 09/18/2022 TSH, REFLE X FREE T4 TSH 1.39 uIU/m L 0.30-5 .33 Not Available [facility] (Lab) [address], [place], [address], 09/26/2022 00:05:28 09/19/19 23 09/18/2022 HUMAN SEX HORMO NE LASHAY NG GLOBU IGNACIO sex hormone binding globulin 45.8 nmole s/L 18.2-1 35.5 Not Available [facility] (Lab) [address], [place], [address], 09/26/2022 00:05:29 09/19/1909/18/2022 TESTO STERO NE, FREE( DIALY SIS) AND TOTAL (LC/M S/MS) testosterone , total 10 NG/dL 2-45 For addit ional infor rina benitez e refer to http: //[facility] andrés fraser.que stdia gnost ics.c om/fa q/Tot alTes bessie Viera [facility] (This link is being provi ded for infor sulema nal/ educa amos l purpo ses only. ) This test was ivet ruiz and its waylon tical perfo rmanc e tunde cteri stics have been deter mined by [employer] [facility]. It has not been clear ed or appro dane by the FDA. This assay has been valid ated pursu ant to the CLIA regul ation s and is used for clini kalpana purpo ses. Not Available [facility] (Lab) [address], [place], [address], 09/26/2022 00:05:29 09/19/19 23 09/18/2022 TESTO STERO NE, FREE( DIALY SIS) AND TOTAL (LC/M S/MS) testosterone , free 1.4 pg/mL 0.1-6. 4 This test was devel oped and its waylon tical perfo rmanc e tunde cteri stics have been deter mined by [employer]. It has not been clear ed or appro dane by the FDA. This assay has been valid ated pursu ant to the CLIA regul ation s and is used for clini kalpana purpo ses. Perfo rming Organ izati on Infor matio n: Site ID: [id number] Name: [employer] [facility]-Jose Elias nicolas Avila cia Addre ss: [id number] [place] [address] Direc tor: Griselda alvarez M.D. Not Available [facility] (Lab) [address], [place], [address], 09/26/2022 00:05:29 09/19/19 23 09/18/2022 pregn billy test, urine HCG negati ve Not Available [facility] [address], [place], [address], 09/18/2022 12:00:15 Result Notes None recorded. Medical Equipment None Reported. Allergies No known drug allergies Medications Not known to be on any medication Vitals Date Recorded Body height Body mass index (BMI) Body weight Systolic blood pressure Diastolic blood pressure Provider Name and Address Organization Details Last Updated DateTime 09/18/2022 154.94 cm 20.6 kg/m2 26743.57 g 113 mm[Hg] 78 mm[Hg] Viktoriya Sebastian [facility] 11:26:43 Social History Question Answer Notes LastModified by Organizat ion Details LastModified Time Tobacco Smoking Status Never Smoker Viktoriya renae, [facility] 09/18/2022 11:30:16 What Is Your Level Of Alcohol Consumption? None Information not available 09/18/2022 Are You Blind Or Do You Have Difficulty Seeing? No Information not available 09/18/2022 Are You Deaf Or Do You Have Serious Difficulty Hearing? No Information not available 09/18/2022 Sex: Unknown Functional Status Question Answer Note LastModified by Organizat ion Details LastModified Time Do you have difficulty walking or climbing stairs? No Information not available 09/18/2022 Are you able to walk? YESWOREST Information not available 09/18/2022 Are you able to care for yourself? Yes Information not available 09/18/2022 Do you have difficulty dressing or bathing? No Information not available 09/18/2022 Mental Status None recorded. Family History Nothing Reported. Medical History Condition Response Allergies (Food, seasonal, environmental ) N Other N Breast Cancer N Drug/Latex Allergies/Reactions N Blood Transfusion N Dermatologic Disorders N Lung Disease N Defects or Inherited Disease N Breast Problem N Gestational Diabetes N Hematologic disorders N Anesthesia Complications N History of STI N Deep Vein Thrombosis N Polycystic ovary syndrome N Anxiety Disorder N Autoimmune disease N Arthritis N Infertility N Polyps N Acid Reflux (GERD) N History of abnormal pap N Cancer N Stroke N Varicosities N Neurologic/Epilepsy N Endometriosis N High Cholesterol N Headaches N Fibromyalgia N Kidney Disease N Heart Problems N Kidney or Bladder Problems N Thyroid Problems N GI Problems N Eating Disorder N Anemia Y Art (IVF or FET) N Psychiatric Illness N Ovarian Cancer N Diabetes N Pulmonary (TB, Asthma) N Hepatitis/Liver Disease N No Past Medical History N Eczema N Urinary Tract Infection N Abuse/Domestic Violence N Asthma N Trauma/Violence N Depression/ depression N Heart Disease N Pre-Eclampsia N Hypertension N Osteoporosis N Thrombophilias N Gynecological History Statement/Question Response Abnormal Pap N Flow Heavy Date of LMP 09/18/2022 Was last menstrual period normal N STIs/STDs N HPV Vaccine N Current Control Method Condoms Are cycles usually normal N Sexually Active? Y Menses Monthly Y Date of Last Pap Smear Sexual Problems? N LMP Definite Obstetrics History GPAL:G 2 P 0 0 0 2 Type Value Living 2 Total 2 Past Encounters Encounter ID Performer Location Encounter Start Date Encounter Closed Date Diagnosis/Indication Diagnosis SNOMED-CT Code Diagnosis ICD10 Code Diagnosis Note [id number] Giuliana BartolometereseJESSICA [place] [address] [address] 09/18/2022 11:00:49 09/18/2022 12:20:14 Screening for malignant neoplasm of breast 949678144 Z12.39 Abnormal u terine bleeding 1474000256 9100 N93.9 Gynecologi c examination 03263144 Z01.419 Suggested Calcium with Vitamin D 1200-1500m g daily. Patient advised to get an annual flu shot in the fall and she could obtain at [facility] or [facility]. Also to obtain TDap vaccinatio n if you have not had one in the last 10 years. Recommend yearly mammograms . Encouraged monthly self breast exams. Encourage safe sexual practices, to use condoms and limit partners if not already in a monogamous relationsh ip. Engage in daily exercise of low impact aerobic exercise 45-60 minutes 4-5 times weekly. Avoid tobacco and illicit drugs as well as using moderation with alcohol intake less than 1-2 8 oz beverages daily. This lifestyle behavior pattern will lead to less health conditions and longer life span. If BMI greater than 25 weight watchers or dietary consult advised. All questions have been answered. Patient appears to understand informatio n, but if you have any questions please call or respond to this email. WWEBC - condomsper iods are heavy, lasting 7-10 days. Sometimes will have 2 periods per month. Has been like this for years.we agreed to update labs and pelvic u/s for further evaluation no hx of abnormal papspap done todaySTI testing added to papBlood STI testing declinedMa mmogram order givenUTD with PCP for routine labsRTC for pelvic u/s and f/u Time spent in visit is a total of 35 mins with at least 50% of visit consisting of counseling and review of plan of care. Venereal d isease screening 580168704 Z11.3 Health Concerns Section Related Observation LastModified by Organization Detai ls LastModified Time None Recorded Concern Status LastModified by Organization Details LastModified Time None Recorded Advance Directives Directive None Recorded Payers Encounter Date Sequence Insurance Name Policy Number Policy Manzanares Covered Member ID Manzanares Member ID Guarantor Name 09/18/2022 1 [facility] - DOS ON OR AFTER 20 (MEDICAID REPLACEMENT - HMO) Marnie Mccoy [id number] Marnie Buckkarlosmary Notes Date Note Type Note Provider Name and Address Organization Details Recorded Time 09/18/2022 text/html Annual GYNReport ed bypatient.Menstrua l cycle:Bleeding lasts more than 7 days Urinary symptoms:No hematuria; No incontinence Vulva:No genital lesion Vagina:Normal vaginal discharge Breast:No breast pain; No breast lump; No nipple discharge Current Contraception:Cond oms Sexual complaints:No sexual complaints; No pain during intercourse; Normal libido Menopausal Symptoms:No menopausal symptoms; Normal vaginal lubrication Psychological symptoms:No depression; No anxiety; No PMDD Preventive measures:Encourage self breast examination; Encourage regular exercise; Encourage no tobacco use; Encourage regular mammograms starting age 40; Needs to schedule mammogram JESSICA eNttles [address], [place], [address], [facility] 09/18/2022 12:04:20 OBGyn Episode Ob Episode Information Episode Created Date Number of Fetuses Patient Bloodtype Patient rh Status Prepregnancy Weight lbs Domestic Partner Domestic Partner Phone Father Name Basin Operator Status 09/19/19 23 1 CLOSED Fetus Data First Name Last Name Admitted to NICU Weight (g) Sex Living Outcome Pediatric Complications Fetus ID Race Codes Race Delivery Type F [id number] Vaginal Delivery Spencer Calculation Initial Spencer Date Initial Exam Date Initial Exam Provider Initial Ultrasound Date Last Menstrual Period Date Ultra Sound Weeks Gestation 0 Eighteen To Twenty Week Spencer Update Ultra Sound Date Fundal Height At Umbil Quickening Date Ultra Sound Latest Weeks Gestation Final Spencer Confirmed By Final Spencer Confirmed Date Final Spencer Date Ultra Sound Latest Days Gestation 0 0 Menstrual History Last Menstrual Date Menses Monthly On Bcp Conception Prior Menses Frequency Hcg Plus Date Menarche Onset Age Delivery Information Delivery Date Delivery Type Labor Anesthesia Weeks Gestation Incision Type Labor Labor Length Hrs Delivered By Post Complications Tubal Sterilization Discharge Date Comments 8 Discharge Information Feeding Method Contraceptive Method Maternal HG B and HCT Levels Ob Episode Information Episode Created Date Number of Fetuses Patient Bloodtype Patient rh Status Prepregnancy Weight lbs Domestic Partner Domestic Partner Phone Father Name Basin Operator Status 09/19/19 23 1 CLOSED Fetus Data First Name Last Name Admitted to NICU Weight (g) Sex Living Outcome Pediatric Complications Fetus ID Race Codes Race Delivery Type M [id number] Vaginal Delivery Spencer Calculation Initial Spencer Date Initial Exam Date Initial Exam Provider Initial Ultrasound Date Last Menstrual Period Date Ultra Sound Weeks Gestation 0 Eighteen To Twenty Week Spencer Update Ultra Sound Date Fundal Height At Umbil Quickening Date Ultra Sound Latest Weeks Gestation Final Spencer Confirmed By Final Spencer Confirmed Date Final Spencer Date Ultra Sound Latest Days Gestation 0 0 Menstrual History Last Menstrual Date Menses Monthly On Bcp Conception Prior Menses Frequency Hcg Plus Date Menarche Onset Age Delivery Information Delivery Date Delivery Type Labor Anesthesia Weeks Gestation Incision Type Labor Labor Length Hrs Delivered By Post Complications Tubal Sterilization Discharge Date Comments 0 Discharge Information Feeding Method Contraceptive Method Maternal HG B and HCT Levels
--- OUTSIDE RECORDS SUMMARY | 2024-07-12 14:22 | XMS_ITS | Clinical Summary ---
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
--- OUTSIDE RECORDS SUMMARY | 2024-07-12 14:23 | XMS_ITS | Referral Summary ---
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
== END 2024-07-12 12:20 | disposition home or self-care (01) ==
PROVIDERS: Emergency Provider Emergency Medicine
DX: K08.89 Other specified disorders of teeth and supporting structures (principal)
CPT/HCPCS: 99283